=== PATIENT | female | born 1980 | race American Indian/Alaskan Native ===

== ENCOUNTER 2021-03-24 16:28 | Emergency (ER) | payer OTHER ==
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
[2021-03-24] MEDS ORDERED: traMADol 50 MG TAB PO ONE (19:00)
[2021-03-24 19:02] VITALS: BP 131/59
== END 2021-03-24 22:47 | disposition home or self-care (01) ==
LOC: ED 16:28
DX: J90 Pleural effusion, not elsewhere classified (principal); S20.211A Contusion of right front wall of thorax, initial encounter; S20.212A Contusion of left front wall of thorax, initial encounter; S80.11XA Contusion of right lower leg, initial encounter; V87.7XXA Person injured in collision between other specified motor vehicles (traffic), initial encounter
CPT/HCPCS: 71046; 99282